=== PATIENT | male | born 1985 | race Caucasian/White ===

== ENCOUNTER 2018-01-03 23:57 | Emergency (ER) | payer BC ==
[2018-01-04] MEDS ORDERED: ACET/COD 300 MG/30 MG STARTER PACK 6 TAB BTL PO STA (00:28)
--- NOTE | 2018-01-04 00:30 | ED ---
Upper Extremity HPI - General Chief Complaint: Extremity Injury, Upper Stated Complaint: wrist pain Time Seen by Provider: 01/04/18 00:05 Source: patient Mode of arrival: ambulatory Limitations: no limitations - History of Present Illness Initial Comments: 32-year-old male patient presents to the emergency department today for complaints of left wrist pain. Patient states that he was lifting heavy wood pallets and 60 pound bags of sand all throughout the day today. Patient states that towards the end of the day his wrist started to hurt. Patient states he is now unable to move the wrist without significant pain. Patient denies any radiation of the pain up the arm or down his hand. States he has had intermittent tingling to the third, fourth, and fifth digit on the left hand. Patient denies any previous injury to the wrist. Denies any other injuries or concerns. Patient denies any headache, neck pain, back pain, chest pain, shortness of breath, dizziness, weakness, abdominal pain, nausea, vomiting, or difficulties with bowel movements or urination. - Related Data Previous Rx's Medication Instructions Recorded Amoxicillin 500 mg PO Q8HR #300 ml 04/14/16 Omeprazole 20 mg PO BID #60 cap 04/14/16 oxyCODONE-APAP 5-325MG [Percocet 1 - 2 each PO Q6HR PRN #60 tab 04/14/16 5-325 mg] predniSONE 20 mg PO DIRECTED #5 tab 04/14/16 Ibuprofen [Motrin] 600 mg PO Q8HR PRN #30 tab 01/04/18 Allergies Allergy/AdvReac Type Severity Reaction Status Date / Time callamari Allergy Rash/Hives Uncoded 01/04/18 00:03 Review of Systems ROS Statement: Those systems with pertinent positive or pertinent negative responses have been documented in the HPI. ROS Other: All systems not noted in ROS Statement are negative. Past Medical History Past Medical History: Thyroid Disorder Additional Past Medical History / Comment(s): possible sleep apnea, trouble breathing History of Any Multi-Drug Resistant Organisms: None Reported Past Surgical History: No Surgical Hx Reported Past Anesthesia/Blood Transfusion Reactions: No Reported Reaction Past Psychological History: No Psychological Hx Reported Smoking Status: Current every day smoker - Past Family History Mother Family Medical History: No Reported History General Exam Limitations: no limitations General appearance: alert, in no apparent distress, other (This is a well- developed, well-nourished adult male patient in no acute distress. Vital signs upon presentation are temperature 98.5F, pulse 65, respirations 16, blood pressure 125/77, pulse ox 100% on room air.) Eye exam: Present: normal appearance, PERRL, EOMI. Absent: scleral icterus, conjunctival injection, periorbital swelling ENT exam: Present: normal exam, normal oropharynx, mucous membranes moist Respiratory exam: Present: normal lung sounds bilaterally. Absent: respiratory distress, wheezes, rales, rhonchi, stridor Cardiovascular Exam: Present: regular rate, normal rhythm, normal heart sounds. Absent: systolic murmur, diastolic murmur, rubs, gallop, clicks Extremities exam: Present: normal inspection, tenderness (Tenderness over the volar aspect of the left wrist), normal capillary refill, other (Patient wrist and hand are pink, warm, and dry. Cap refills less than 3 seconds. Radial pulses 2+ and equal bilaterally. Patient has full range of motion of the fingers. Limited range of motion to left wrist due to increased pain with movement.). Absent: full ROM, pedal edema, joint swelling, calf tenderness Neurological exam: Present: alert, oriented X3, CN II-XII intact Psychiatric exam: Present: normal affect, normal mood Skin exam: Present: warm, dry, intact, normal color. Absent: rash Course Vital Signs 01/04/18 01/04/18 00:00 01:23 Temperature 98.5 F 98 F Pulse Rate 65 77 Respiratory 16 18 Rate Blood Pressure 125/77 144/77 O2 Sat by Pulse 100 98 Oximetry Medical Decision Making - Medical Decision Making 32-year-old male patient presented to the emergency department today for evaluation of left wrist pain after lifting heavy bags of stand and wouldn't pallets all day long. Physical examination was unremarkable. There is no swelling noted. Neurovascular status is intact. Did perform x-ray of the left wrist which showed no acute process. I did discuss with patient the likelihood that his symptoms are related to a strain of the wrist, tenderness, or ligamentous injury. He will be placed in an Real wrap and given a prescription for ibuprofen and instructed to follow-up with orthopedics of his symptoms do not improve over the next 1-2 days. Return parameters were discussed in detail. He verbalizes understanding and agrees with this plan. - Radiology Data Radiology results: report reviewed, image reviewed 4 views of the left wrist are obtained. There is no fracture nor dislocation noted. Joint spaces are normal. Carpal bones are intact. Impression by Dr. Hodges shows negative left wrist exam. Disposition Clinical Impression: Strain of left wrist Disposition: HOME SELF-CARE Condition: Good Instructions: Wrist Injury (ED) Additional Instructions: Rest, ice, elevate the left wrist. Keep Real wrap on for comfort and support. Take medications as directed. Follow-up with orthopedics if her symptoms don't improve over the next couple of days. Follow-up with your primary care physician for recheck in 1-2 days. Return here immediately for any new, worsening, or concerning symptoms. Prescriptions: Ibuprofen [Motrin] 600 mg PO Q8HR PRN #30 tab PRN Reason: Pain Is patient prescribed a controlled substance at d/c from ED?: No Referrals: Keven Cohen DO [Primary Care Provider] - 1-2 days Time of Disposition: 01:19
--- NOTE | 2018-01-04 01:13 | XR ---
EXAMINATION TYPE: XR wrist complete LT DATE OF EXAM: 01/04/2018 COMPARISON: NONE HISTORY: Wrist pain TECHNIQUE: 4 views FINDINGS: I see no fracture nor dislocation. Joint spaces are normal. Carpal bones are intact. IMPRESSION: Negative left wrist exam.
[2018-01-04 01:25] VITALS: BP 144/77; PULSE 77; RESP 18; TEMP 98
== END 2018-01-04 01:26 | disposition home or self-care (01) ==
LOC: EC 23:57
DX: S66.912A Strain of unspecified muscle, fascia and tendon at wrist and hand level, left hand, initial encounter (principal); F17.200 Nicotine dependence, unspecified, uncomplicated; Z91.018 Allergy to other foods; X50.0XXA Overexertion from strenuous movement or load, initial encounter
CPT/HCPCS: 99283

== ENCOUNTER 2018-02-15 06:10 | Day surgery (SDC) | payer BC ==
[2018-02-08 15:54] VITALS: BMI 31.4
[~2018-02-15 06:10] MED LIST: DEXAMETHASONE SOD PHOSPHATE 10 MG/ML 1 ML VIAL IV ONE; DEXAMETHASONE SOD PHOSPHATE 20 MG in DEXTROSE 5% IN WATER 50 ML IV ONE; HYDROmorphone 0.5 MG/0.5 ML SYRINGE IVP PRN; LACTATED RINGERS 1,000 ML IV SCH; ONDANSETRON 4 MG/2 ML VIAL IVP ONE; ceFAZolin IN SWFI 2 GM/20 ML SYRINGE IVP ONE
[2018-02-15 06:54] VITALS: RESP 16
[2018-02-15] MEDS ORDERED: LIDOCAINE 1% 20 ML VIAL (10MG/ML) FOR IV START INTRADERMA ONE (07:01)
[2018-02-15] MEDS: OXYMETAZOLINE 0.05% NASL SPRAY 1 SPRAY BOTTLE EA NOSTRIL NR ×5 (07:08→07:25)
[2018-02-15] MEDS ORDERED: FAMOTIDINE 20 MG/2 ML VIAL IV ONE (07:12)
[2018-02-15] MEDS ORDERED: LIDOCAINE 1%-EPI 1:100,000 30 ML VIAL SUBMUCOSAL ONE (07:23)
[2018-02-15] MEDS ORDERED: CIPROFLOXACIN-DEXAMETH 0.3-0.1% DROPS 7.5 ML BTL RIGHT EAR ONE (07:23)
[2018-02-15] MEDS ORDERED: LIDOCAINE 1% INJ 10MG/ML (20 ML MDV) ONE (07:28)
[2018-02-15] MEDS ORDERED: NEOSTIGMINE 1 MG/ML 10 ML VIAL ONE (07:28)
[2018-02-15] MEDS ORDERED: fentaNYL (PF) 50 MCG/ML 2 ML AMP ONE (07:28)
[2018-02-15] MEDS ORDERED: DEXAMETHASONE SOD PHOS (MDV) 100 MG/10 ML VIAL ONE (07:28)
[2018-02-15] MEDS ORDERED: GLYCOPYRROLATE 0.2 MG/ML 2 ML VIAL ONE (07:28)
[2018-02-15] MEDS ORDERED: SUCCINYLCHOLINE CHLORIDE 100 MG/5 ML SYR IV ONE (07:28)
[2018-02-15] MEDS ORDERED: ROCURONIUM BROMIDE 10 MG/ML 10 ML VIAL IV ONE (07:28)
[2018-02-15] MEDS ORDERED: OXYMETAZOLINE 0.05% NASL SPRAY 1 SPRAY BOTTLE NASAL ONE (07:28)
[2018-02-15] MEDS ORDERED: MIDAZOLAM 2 MG/2 ML VIAL ONE (07:28)
[2018-02-15] MEDS ORDERED: PROPOFOL 10 MG/ML 20 ML VIAL IV ONE (07:28)
--- NOTE | 2018-02-15 08:18 | P.OP ---
Date of Procedure: 02/15/18 Preoperative Diagnosis: Eustachian tube dysfunction, right Nasopharyngeal mass Chronic otitis media with effusion, right Conductive hearing loss right, middle ear Postoperative Diagnosis: Same Procedure(s) Performed: Right direct microscopic tympanostomy and tube placement Endoscopic biopsy of nasopharyngeal mass Anesthesia: SUSHANTA Surgeon: Pop Garcia Estimated Blood Loss (ml): 2 Pathology: other (Nasopharynx) Condition: stable Disposition: PACU Indications for Procedure: This patient presented to the office with right-sided ear pain pressure hearing loss. He was given oral antibiotics and steroids which did not improve. He's failed medical therapy. Endoscopy reveals an enlargement in the nasopharynx and a biopsy is recommended. All risks, benefits, and alternative therapies were discussed. Consent was obtained and all questions were answered. Operative Findings: Right middle ear effusion, tympanic membrane is atrophic, nasopharyngeal masses noted which had a lymphoid appearance. Description of Procedure: This patient was taken to the operative room and placed in the supine position. A general inhalation anesthetic was administered to the patient by mask and subsequently intubated with a cuffed endotracheal tube by the department of anesthesia with a functioning IV line in place. The patient was monitored throughout the entire case by the department of anesthesia. The right ear was visualized with a 250 mm Zeiss microscope and cerumen and epithelial debris was removed from the external auditory canal. Tympanostomy incision was made inferiorly fluid was suctioned and an ultraseal tube was placed. Attention was then paid to the nasopharynx with endoscopy utilizing a 0 Hull alberto scope. Lymphoid aggregate enlargement was noted and was removed and sent for biopsy purposes. Hemostasis was obtained with use of suction electrocoagulation. Excellent results were obtained. Hemostasis was total incomplete. Follow-up is scheduled.
[2018-02-15 08:27] VITALS: TEMP 97.7
[2018-02-15] MEDS ORDERED: ACETAMINOPHEN TAB 325 MG TAB PO ONE (09:20)
[2018-02-15 09:42] VITALS: BP 135/81; PULSE 69
== END 2018-02-15 09:48 | disposition home or self-care (01) ==
LOC: OR 06:10
PROVIDERS: ATTEND Otolaryngology
DX: H69.91 Unspecified Eustachian tube disorder, right ear (principal); R22.0 Localized swelling, mass and lump, head; H65.491 Other chronic nonsuppurative otitis media, right ear; H90.11 Conductive hearing loss, unilateral, right ear, with unrestricted hearing on the contralateral side; G47.30 Sleep apnea, unspecified; E07.9 Disorder of thyroid, unspecified; F17.210 Nicotine dependence, cigarettes, uncomplicated; Z79.1 Long term (current) use of non-steroidal anti-inflammatories (NSAID); Z79.890 Hormone replacement therapy; Z79.899 Other long term (current) drug therapy; Z91.013 Allergy to seafood
CPT/HCPCS: 88305; 69436; 42999; J2250; J1100 ×2; J2710; J2405; J2001; J3010; J0330; J2704; J0690

== ENCOUNTER → 2020-06-18 | Outpatient (CLI) | payer OTHER ==
--- NOTE | 2020-06-18 11:57 | XR ---
EXAMINATION TYPE: XR lumbar spine 2 or 3V DATE OF EXAM: 06/18/2020 COMPARISON: None HISTORY: Pain TECHNIQUE: Three-view lumbar spine FINDINGS: Disc space narrowing is present L1-2. Milder narrowing of L2-3 may be present. Remaining di sc heights are preserved. Vertebral body heights are preserved. There 5 lumbar-type vertebral bodies. The pedicles are intact. There is attempted sacralization of L5 on the right. The T12 level appears to be lumbarized. Plain film correlation be recommended prior to any surgical intervention. IMPRESSION: 1. There appear to be transitional vertebral levels present. 2. No acute osseous abnormality. 3. Degenerative disc changes appear in the region of L1-2 and L2-3
== END | disposition home or self-care (01) ==
LOC: RADXRMAIN 11:31
PROVIDERS: ATTEND Emergency Medicine
DX: M51.36 Other intervertebral disc degeneration, lumbar region (principal)
CPT/HCPCS: 72100